=== PATIENT | female | born 1990 | race Caucasian/White ===

== ENCOUNTER → 2017-02-13 | Outpatient (CLI) | payer BC ==
[~2017-02-13] MED LIST: CLR10 PO; PRENTAB26 PO
[2017-02-13 11:10] LABS: PFT COL EPI 176 SECONDS (80-184)
== END | disposition home or self-care (01) ==
LOC: C.LAB 09:27
PROVIDERS: ATTEND Family Medicine
DX: R23.8 Other skin changes (principal)

== ENCOUNTER → 2017-07-16 | Outpatient (CLI) | payer BC ==
--- NOTE | 2017-07-16 15:20 | MAMMOGRAPHY REPORT ---
ULTRASOUND OF RIGHT BREAST: 07/16/2017 CLINICAL HISTORY: The patient reports that her doctor felt a possible lump in the right breast during a routine clinical exam. The patient could not clearly feel the lump herself. She is currently wea evelyn from breast-feeding. COMPARISON: Comparison is made to exam dated: 06/08/2015 ultrasound - [facility]. TECHNIQUE: Real-time targeted ultrasound of the right breast was performed. FINDINGS: Real-time, high-resolution targeted ultrasound was performed of the general region of the palpable lump pointed out by the patient. The patient could not clearly feel the lump herself althou gh pointed to the right upper outer quadrant near the axillary region. Targeted ultrasound demonstra geno no suspicious masses or other suspicious sonographic abnormalities in this region. Incidentally noted in the right 10:00 periareolar breast is an oval anechoic circumscribed benign simple cyst arturo uring 4 x 5 mm. IMPRESSION: ACR BI-RADS CATEGORY 2: BENIGN No suspicious sonographic abnormality in the general region of the palpable right breast lump; note t hat the patient could not feel the lump today and therefore could not pinpoint the exact location of the lump. There is no sonographic evidence of malignancy. Recommend clinical follow-up; any decisio n to biopsy should be based on clinical grounds. The patient was verbally notified of the results. Nissa Linton M.D. /:07/16/2017 10:38:39 Water Technician: Linda KIRBY)(Marcia), [facility] letter sent: Normal 1/2 BI-RADS Code: ACR BI-RADS Category 2: Benign
== END | disposition home or self-care (01) ==
LOC: C.MAMM 08:39
PROVIDERS: ATTEND Physician Assistant
DX: Z12.31 Encounter for screening mammogram for malignant neoplasm of breast (principal); N63.10 Unspecified lump in the right breast, unspecified quadrant

== ENCOUNTER → 2017-09-30 | Outpatient (CLI) | payer OTHER | END | disposition home or self-care (01) | LOC: C.LABSPEC 13:33 | PROVIDERS: ATTEND Obstetrics & Gynecology | DX: Z34.81 Encounter for supervision of other normal pregnancy, first trimester (principal); Z3A.00 Weeks of gestation of pregnancy not specified ==

== ENCOUNTER → 2017-10-03 | Outpatient (CLI) | payer OTHER ==
[2017-10-03 17:20] LABS: BASO % 0.3 %; BASO ABS # 0.02 K/uL (0-0.2); EOS % 1.7 %; EOS ABS # 0.12 K/uL (0-0.5); HEMATOCRIT 37.9 % (37-47); HEMOGLOBIN 13.2 g/dL (12.0-16.0); IG# 0.01 K/uL (0.00-0.02); LYMPH ABS # 1.72 K/uL (1.2-3.4); MEAN CELL VOLUME 86.3 fL (80-100); MEAN CORPUSCULAR HEMOGLOBIN 30.1 pg (25-34); MEAN CORPUSCULAR HGB CONC 34.8 g/dl (32-36); MEAN PLATELET VOLUME 9.3 fL (7.4-10.4); MONO % 13.5 %; MONO ABS # 0.93 K/uL (0.11-0.59); NEUT % 59.4 %; NEUT ABS # 4.07 K/uL (1.4-6.5); PLATELET COUNT 260 K/uL (130-400); RED CELL DISTRIBUTION WIDTH CV 12.6 % (11.5-14.5); RED CELL DISTRIBUTION WIDTH SD 40.2 fL (36.4-46.3); WHITE BLOOD COUNT 6.87 K/uL (4.8-10.8)
== END | disposition home or self-care (01) ==
LOC: C.LAB1850 15:22
PROVIDERS: ATTEND Obstetrics & Gynecology
DX: Z34.81 Encounter for supervision of other normal pregnancy, first trimester (principal); Z3A.00 Weeks of gestation of pregnancy not specified

== ENCOUNTER → 2017-10-03 | Outpatient (CLI) | payer OTHER | END | disposition home or self-care (01) | LOC: C.LABSPEC 17:28 | PROVIDERS: ATTEND Obstetrics & Gynecology | DX: Z34.81 Encounter for supervision of other normal pregnancy, first trimester (principal); Z3A.00 Weeks of gestation of pregnancy not specified ==

== ENCOUNTER → 2017-10-21 | Outpatient (CLI) | payer OTHER | END | disposition home or self-care (01) | LOC: C.LAB1850 16:05 | PROVIDERS: ATTEND Obstetrics & Gynecology | DX: R35.0 Frequency of micturition (principal) ==

== ENCOUNTER → 2017-12-18 | Outpatient (CLI) | payer OTHER | END | disposition home or self-care (01) | LOC: C.LAB1850 09:41 | PROVIDERS: ATTEND Obstetrics & Gynecology | DX: Z34.82 Encounter for supervision of other normal pregnancy, second trimester (principal) ==

== ENCOUNTER → 2018-04-21 | Outpatient (CLI) | payer OTHER | END | disposition home or self-care (01) | LOC: C.LABSPEC 16:07 | PROVIDERS: ATTEND Obstetrics & Gynecology | DX: Z34.83 Encounter for supervision of other normal pregnancy, third trimester (principal); Z3A.00 Weeks of gestation of pregnancy not specified ==

== ENCOUNTER → 2018-04-30 | Outpatient (CLI) | payer OTHER ==
--- NOTE | 2018-04-30 17:43 | DIAGNOSTIC IMAGING REPORT ---
R VENOUS DOPP LOWER EXT UNILAT CLINICAL HISTORY: RIGHT LEG PAIN AND SWELLING pain. Edema. TECHNIQUE: Venous Doppler COMPARISON STUDY: None FINDINGS: Normal study IMPRESSION: Normal study The above report was generated using voice recognition software. It may contain grammatical, syntax or spelling errors. Electronically signed by: Fabricio Serrato M.D. 04/30/2018 5:42 PM Dictated Date/Time: 04/30/2018 5:42 PM
== END | disposition home or self-care (01) ==
LOC: C.ULTR 16:55
PROVIDERS: ATTEND Obstetrics & Gynecology
DX: M79.661 Pain in right lower leg (principal); M79.89 Other specified soft tissue disorders

== ENCOUNTER 2021-02-02 14:10 | Inpatient (IN) ==
--- NOTE | 2021-02-02 14:39 | Emergency Department Note ---
Impression & Plan Superior vena cava occlusion, Dizzy, Facial swelling, Acute hypokalemia ED Provider Note NAME: SIVA ANNE AGE: 30 SEX: F : 1990 ARRIVES VIA: Walk-In INFORMANT: Patient ED PROVIDER(S): Ash Acevedo DO CHIEF COMPLAINT: blood clot HPI: Patient is a 30-year-old female with bilateral breast cancer diagnosed in 2019. She had a double mastectomy at that time. She had a right port placed. She underwent chemo from October 2019 till January. She underwent radiation from March for several months. Over the past month she has become a little short of breath and dizzy with exertion. She notes that her face has been swelling up with this as well. She was seen and had an ultrasound which showed limited flow in the region of the left subclavian. Following this she had a CT angio of the chest which showed clot in the SVC ROS: See above HPI for pertinent positives & negatives. A total of 10 systems reviewed and were otherwise negative. PAST MEDICAL HISTORY:See Below PAST SURGICAL HISTORY:See Below FAMILY HISTORY:See Below SOCIAL HISTORY:See Below HOME MEDICATIONS:See Below ALLERGIES:See Below VITALS:See Below PHYSICAL EXAMINATION: GENERAL: Sitting up in bed, alert, well appearing, well nourished, no distress, non-toxic EYE EXAM: normal conjunctiva. OROPHARYNX: no exudate, no erythema, lips, buccal mucosa, and tongue normal and mucous membranes are moist NECK: supple, no nuchal rigidity, no adenopathy, non-tender CHEST: Port of her right chest wall with bilateral mastectomy LUNGS: Clear to auscultation. Normal chest wall mechanics HEART: no murmurs, S1 normal and S2 normal ABDOMEN: abdomen soft, non-tender, normo-active bowel sounds, no masses, no rebound or guarding. UPPER EXTREMITIES: upper extremities are grossly normal. LOWER EXTREMITIES: No pitting edema. NEURO EXAM: Normal sensorium, cranial nerves II-XII grossly intact, normal speech, no gross weakness of arms, no gross weakness of legs. MEDICAL DECISION MAKING: Patient is a 30-year-old female that presents the ER for clot in her SVC associated with dizziness and lightheadedness. She was referred in. IV was established blood work obtained. Labs showed no significant leukocytosis or anemia. INR was unremarkable. BMP with mild hypokalemia 3.3. LFTs bilirubin troponin was negative. Lipase was unremarkable. Covid was negative. CTs were reviewed. Patient was placed on heparin drip and bolus. She had no bleeding risk factors. She was discussed with the hospitalist. They requested I speak with Dr. Ruiz. Did discuss with Dr. Ruiz and he noted no emergent intervention at this time. Updated Dr. Moncada. Patient was admitted for further work-up. Triage Nursing notes reviewed. Limited review of prior medical records performed Vital Signs: reviewed and remarkable for tachy Differential diagnosis: .Differential diagnoses includes but is not limited to acute coronary syndrome, myocardial infarction, pericarditis, pulmonary embolus, aortic dissection, pneumonia, pneumothorax, musculoskeletal, shingles, esophageal. ER treatment provided: See below Diagnostics interpreted by me: ECG: Sinus rhythm rate 87 Normal axis No PVCs QTC 442 Cardiac Monitoring: An order was placed for continuous cardiac monitoring. The monitor shows a rate of 90 with sinus rhythm. Laboratory studies: As stated above and show below. Imaging studies: IMPRESSION: 1. There is no evidence of pulmonary embolus in the main, lobar, or segmental pulmonary arteries. 2. The breasts are surgically absent. 3. There is subpleural consolidation within the anterior left upper lobe. This is nonspecific and may be related to radiation treatment. Clinical correlation will be essential. 4. No additional foci of airspace consolidation are identified and there is no pleural effusion. 5. Mild diffuse peribronchial thickening suggests bronchitis/reactive airway disease. Clinical correlation will be required. 6. 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 7. Question intraluminal thrombus within the superior vena cava above the azygos vein. IMPRESSION: 1. No significant stenosis, occlusion, or dissection identified within the carotid or vertebral arteries. 2. Heterogeneous enhancement within the bilateral internal jugular veins is likely due to mixing of blood and contrast. 3. 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 This likely accounts for multiple collaterals within the superior mediastinum with majority of the contrast reaching the heart through the azygos and hemiazygos veins. This is better appreciated on the same day chest CTA. Consultation(s): Discussed with the hospitalist and vascular surgery Procedures: none Critical Care: I have personally spent 32 minutes of critical care time in the direct manag ement of this patient. This includes bedside care, interpretation of diagnostic studies, and testing, discussion with consultants, patient, and family members, and other required patient management activities. This 32 minutes is in excess of all separately billable procedures. Past Med/Surg History Medical History Breast cyst Broken arm Chronic constipation Dysplastic nevus syndrome Mastitis Pelvic floor relaxation Port-A-Cath in place Rectocele affecting management of mother, antepartum Sciatica Surgical History History of removal of skin mole History of surgery on arm Normal colonoscopy Status post bilateral mastectomy Family History (Updated 04/04/20 @ 11:47 by Lewis Dietz) Aunt Breast cancer Premenopausal - Maternal - Alive and well now Grandfather (Maternal) , Passed age 75 of Multiple Myeloma No problems noted. Grandfather (Paternal) , Passed unknown of Throat & Lung Cancer No problems noted. Mother No problems noted. Father Depression Dyslipidemia Daughter No problems noted. Daughter No problems noted. 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 [employer] Feels Safe at Home: Yes Childhood Exposure to Second-Hand Smoke: Yes (Father ) Assistive Devices: None Allergies Allergies Allergy/AdvReac Type Severity Reaction Status Date / Time lidocaine Allergy Severe HIVES Verified 02/02/21 15:50 cat dander Allergy Mild respiratory Verified 02/02/21 15:50 mold Allergy Mild respiratory Verified 02/02/21 15:50 Sulfa (Sulfonamide Allergy Mild unknown Verified 02/02/21 15:50 Antibiotics) Home Meds Home Medications Medication Instructions Recorded Confirmed ibuprofen 200 mg capsule 200 mg PO Q6H PRN 01/23/21 02/02/21 acetaminophen [Tylenol Extra 1,000 mg PO Q6H PRN 02/02/21 02/02/21 Strength] calcium carbonate-vitamin D3 1 tab PO QAM 02/02/21 02/02/21 [Calcium 500 + D (D3)] cholecalciferol (vitamin D3) 25 mcg PO QAM 02/02/21 02/02/21 [Vitamin D3] fexofenadine-pseudoephedrine 1 tab PO QAM PRN 02/02/21 02/02/21 [Nga-D 24 Hour] fluticasone propionate 2 spray INTRANASAL BID 02/02/21 02/02/21 melatonin 5 mg PO HS PRN 02/02/21 02/02/21 Results & Data (ED) Vital Signs Vital Signs - 24 hr 02/02/21 14:16 02/02/21 14:39 02/02/21 14:44 Temperature 36.8 C Temperature Source Temporal Artery Scan Pulse Rate 108 H 96 H 93 H Pulse Rate from SpO2 Sensor 96 H 97 H Pulse Rhythm Respiratory Rate 20 20 20 Respiratory Effort / Characteristics Non-Labored Respiratory Depth Normal Respiratory Pattern Blood Pressure 99/61 L 116/58 L Blood Pressure Mean 73 77 Blood Pressure Position Sitting Pulse Oximetry 97 97 96 Oxygen Delivery Method Room Air Sepsis Recent Fever Within 48 Hours No Sepsis New/Unexplained Change in Mental Status N/A Sepsis Action Taken by Nursing No Action Required 02/02/21 15:00 02/02/21 15:01 02/02/21 15:03 Temperature Temperature Source Pulse Rate 85 91 H 91 H Pulse Rate from SpO2 Sensor 87 94 H Pulse Rhythm Regular Respiratory Rate 16 14 18 Respiratory Effort / Characteristics Non-Labored Spontaneous SOB on Exertion Respiratory Depth Normal Respiratory Pattern Regular Blood Pressure 105/63 Blood Pressure Mean 77 Blood Pressure Position Pulse Oximetry 99 99 99 Oxygen Delivery Method Room Air Room Air Sepsis Recent Fever Within 48 Hours Sepsis New/Unexplained Change in Mental Status Sepsis Action Taken by Nursing 02/02/21 15:30 Temperature Temperature Source Pulse Rate 91 H Pulse Rate from SpO2 Sensor 93 H Pulse Rhythm Respiratory Rate 18 Respiratory Effort / Characteristics Respiratory Depth Respiratory Pattern Blood Pressure 118/65 Blood Pressure Mean 82 Blood Pressure Position Pulse Oximetry 100 Oxygen Delivery Method Room Air Sepsis Recent Fever Within 48 Hours Sepsis New/Unexplained Change in Mental Status Sepsis Action Taken by Nursing Laboratory Data Result diagrams: 02/02/21 14:43 02/02/21 15:39 Lab Results 02/02/21 02/02/21 02/02/21 Range/Units 14:43 14:43 14:43 WBC 6.70 (4.8-10.8) K/uL RBC 4.46 (4.2-5.4) M/uL Hgb 13.5 (12.0-16.0) g/dL Hct 39.5 (37-47) % MCV 88.6 (80-100) fL MCH 30.3 (25-34) pg MCHC 34.2 (32-36) g/dL RDW Std Deviation 40.9 (36.4-46.3) fL RDW Coeff of Emerita 12.7 (11.5-14.5) % Plt Count 277 (130-400) K/uL MPV 8.7 (7.4-10.4) fL Immature Gran % (Auto) 0.1 % Neut % (Auto) 74.7 % Lymph % (Auto) 14.9 % [place] % (Auto) 8.7 % Eos % (Auto) 1.3 % Baso % (Auto) 0.3 % Neut # (Auto) 5.00 (1.4-6.5) K/uL Lymph # (Auto) 1.00 L (1.2-3.4) K/uL [place] # (Auto) 0.58 (0.11-0.59) K/uL Eos # (Auto) 0.09 (0-0.5) K/uL Baso # (Auto) 0.02 (0-0.2) K/uL Immature Gran # (Auto) 0.01 (0.00-0.02) K/uL APTT 25.7 (21.0-31.0) Seconds PTT Ratio 1.0 Sodium 137 (136-145) mmol/L Potassium (3.5-5.1) mmol/L Chloride 106 (98-107) mmol/L Carbon Dioxide 24 (21-32) mmol/L Anion Gap 7.0 (3-11) BUN 16 (7-18) mg/dl Creatinine 0.77 (0.6-1.2) mg/dl Est Cr Clr Drug Dosing 83.7 ml/min Est GFR ( Amer) 119.2 ml/min Est GFR (Non-Af Amer) 102.9 ml/min BUN/Creatinine Ratio 21.1 H (10-20) Glucose 136 H (70-99) mg/dl Calcium 9.3 (8.5-10.1) mg/dl Total Bilirubin 0.5 (0.2-1) mg/dl AST (15-37) U/L ALT 41 (12-78) U/L Alkaline Phosphatase 45 (45-117) U/L Troponin I < 0.015 (0-0.045) ng/ml Total Protein 7.7 (6.4-8.2) gm/dl Albumin 3.9 (3.4-5.0) gm/dl Globulin 3.8 (2.5-4.0) gm/dl Albumin/Globulin Ratio 1.0 (0.9-2) Lipase 127 (73-393) U/L COVID-19 Eval Order SARS-CoV-2 (PCR) (Negative) 02/02/21 02/02/21 02/02/21 Range/Units 15:30 15:30 15:39 WBC (4.8-10.8) K/uL RBC (4.2-5.4) M/uL Hgb (12.0-16.0) g/dL Hct (37-47) % MCV (80-100) fL MCH (25-34) pg MCHC (32-36) g/dL RDW Std Deviation (36.4-46.3) fL RDW Coeff of Emerita (11.5-14.5) % Plt Count (130-400) K/uL MPV (7.4-10.4) fL Immature Gran % (Auto) % Neut % (Auto) % Lymph % (Auto) % [place] % (Auto) % Eos % (Auto) % Baso % (Auto) % Neut # (Auto) (1.4-6.5) K/uL Lymph # (Auto) (1.2-3.4) K/uL [place] # (Auto) (0.11-0.59) K/uL Eos # (Auto) (0-0.5) K/uL Baso # (Auto) (0-0.2) K/uL Immature Gran # (Auto) (0.00-0.02) K/uL APTT (21.0-31.0) Seconds PTT Ratio Sodium (136-145) mmol/L Potassium 3.3 L (3.5-5.1) mmol/L Chloride (98-107) mmol/L Carbon Dioxide (21-32) mmol/L Anion Gap (3-11) BUN (7-18) mg/dl Creatinine (0.6-1.2) mg/dl Est Cr Clr Drug Dosing ml/min Est GFR ( Amer) ml/min Est GFR (Non-Af Amer) ml/min BUN/Creatinine Ratio (10-20) Glucose (70-99) mg/dl Calcium (8.5-10.1) mg/dl Total Bilirubin (0.2-1) mg/dl AST 18 (15-37) U/L ALT (12-78) U/L Alkaline Phosphatase (45-117) U/L Troponin I (0-0.045) ng/ml Total Protein (6.4-8.2) gm/dl Albumin (3.4-5.0) gm/dl Globulin (2.5-4.0) gm/dl Albumin/Globulin Ratio (0.9-2) Lipase (73-393) U/L COVID-19 Eval Order Covid19 at [facility] SARS-CoV-2 (PCR) NEGATIVE (Negative) Administered Medications Heparin Sodium/Dextrose (Heparin Sodium/Dextrose) 25,000 units in 500 mls @ 18 mls/hr IV .Q24H [id number]; Protocol Stop: 03/04/21 14:57 Last Admin: 02/02/21 15:20 Dose: 900 units/hr, 18 mls/hr Documented by: [id number] Cosigned by: [id number] Discontinued Medications Heparin Sodium (Porcine) (Heparin Sod (Porcine) 1000 Unit/Ml) 1 units IV NOW ONE Stop: 02/02/21 14:59 Last Admin: 02/02/21 15:15 Dose: 4,000 units Documented by: [id number] Cosigned by: [id number] Heparin Sodium/Dextrose (Heparin Iv Adult Wt-Based Standard With Bolus Protocol) 1 ea IV NOW STA; Protocol Stop: 02/02/21 14:43 Last Admin: 02/02/21 15:20 Dose: Not Given Documented by: [id number] Sodium Chloride (Nss 1000ml) 1,000 mls @ 999 mls/hr IV .Q1H1M ONE Stop: 02/02/21 15:42 Last Admin: 02/02/21 14:53 Dose: 999 mls/hr Documented by: [id number] Discharge Plan Visit Data Chief Complaint: Shortness of Breath/Dyspnea Stated Complaint: TWO CHEST BLOOD CLOTS,DIZZY,PORT FOR CHEMO ED Provider: Ash Acevedo Discharge Problem: Superior vena cava occlusion, Dizzy, Facial swelling, Acute hypokalemia Forms Stand Alone Forms: [facility] Prescriptions Prescriptions: No Action ibuprofen [Advil Liqui-Gel] 200 mg capsule 200 mg PO Q6H PRN (Reason: Fever Or Pain) RF: 0 acetaminophen [Tylenol Extra Strength] 500 mg Tablet 1,000 mg PO Q6H PRN (Reason: Fever Or Pain) RF: 0 fluticasone propionate 50 mcg/actuation spray,suspension 2 spray INTRANASAL BID RF: 0 Nga-D 24 Hour 180-240 mg Tablet Extended Release 24 Hr 1 tab PO QAM PRN (Reason: Allergy Symptoms) RF: 0 cholecalciferol (vitamin D3) [Vitamin D3] 25 mcg (1,000 unit) Tablet 25 mcg PO QAM RF: 0 calcium carbonate-vitamin D3 [Calcium 500 + D (D3)] 500 mg(1,250mg) -125 unit Tablet 1 tab PO QAM RF: 0 melatonin 5 mg Tablet 5 mg PO HS PRN (Reason: Sleep) RF: 0
[2021-02-02] MEDS ORDERED: SODIUM CHLORIDE 0.9% 1000ML 1,000 ML IV ONE (14:42)
[2021-02-02] MEDS ORDERED: Heparin IV Adult Wt-Based Standard WITH Bolus Protocol IV STA (14:42)
[2021-02-02] MEDS ORDERED: HEPARIN SOD (PORCINE) 1000 UNIT/ML IV ONE (14:58)
[2021-02-02 15:07] LABS: Basophils # (auto) 0.02 K/uL (0-0.2); Basophils % (auto) 0.3 %; Eosinophils # (auto) 0.09 K/uL (0-0.5); Eosinophils % (auto) 1.3 %; Hematocrit (blood only) 39.5 % (37-47); Hemoglobin 13.5 g/dL (12.0-16.0); Immature Granulocytes # (auto) 0.01 K/uL (0.00-0.02); Immature Granulocytes % (auto) 0.1 %; Lymphocytes % (auto) 14.9 %; Mean Corpuscular Hemoglobin 30.3 pg (25-34); Mean Corpuscular Hgb Conc 34.2 g/dL (32-36); Mean Corpuscular Volume 88.6 fL (80-100); Mean Platelet Volume 8.7 fL (7.4-10.4); Monocytes # (auto) 0.58 K/uL (0.11-0.59); Monocytes % (auto) 8.7 %; Neutrophils % (auto) 74.7 %; Platelet Count 277 K/uL (130-400); RDW Coefficient of Variation 12.7 % (11.5-14.5); RDW Standard Deviation 40.9 fL (36.4-46.3); Red Blood Count 4.46 M/uL (4.2-5.4)
[2021-02-02] MEDS: HEPARIN SODIUM/DEXTROSE 25,000 UNITS/500 ML BAG IV SCH (15:20)
[2021-02-02 15:27] LABS: Partial Thromboplastin Time 25.7 Seconds (21.0-31.0)
[2021-02-02 15:29] LABS: Alanine Aminotransferase 41 U/L (12-78); Albumin Level 3.9 gm/dl (3.4-5.0); BUN Creatinine Ratio 21.1 (10-20); Blood Urea Nitrogen 16 mg/dl (7-18); Calcium 9.3 mg/dl (8.5-10.1); Carbon Dioxide 24 mmol/L (21-32); Chloride 106 mmol/L (98-107); Creatinine Clr Calc Pharmacy 83.7 ml/min; Est GFR (African American) 119.2 ml/min; Est GFR (Non-African American) 102.9 ml/min; Glucose 136 mg/dl (70-99); Lipase 127 U/L (73-393); Sodium 137 mmol/L (136-145)
[2021-02-02 15:42] LABS: Alkaline Phosphatase 45 U/L (45-117); Bilirubin,Total 0.5 mg/dl (0.2-1); Globulin 3.8 gm/dl (2.5-4.0); Total Protein 7.7 gm/dl (6.4-8.2); Troponin I < 0.015 ng/ml (0-0.045)
--- NOTE | 2021-02-02 16:02 | Electrocardiogram Report ---
Test Reason : Blood Pressure : / mmHG Vent. Rate : 087 BPM Atrial Rate : 087 BPM P-R Int : 150 ms QRS Dur : 096 ms QT Int : 368 ms P-R-T Axes : 052 058 024 degrees QTc Int : 442 ms Normal sinus rhythm Normal ECG No previous ECGs available Confirmed by Macario Aden ([id number]) on 02/02/2021 4:02:27 PM Referred By: Harpreet Scherer Confirmed By:Macario Aden
[2021-02-02 16:09] LABS: Potassium 3.3 mmol/L (3.5-5.1)
--- NOTE | 2021-02-02 16:55 | History & Physical Report ---
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 Ruiz by the ER physician and advised for not having any acute intervention now Case discussed with Dr. Scherer by me, doubt any acute embolism effect from the thrombosis was sent to chronic Chronic clot formation could be secondary to a port and may be complicated by possible hypercoagulable state due to history of breast cancer Echo of the heart on 01/30/2021 LV EF 59% Doppler interrogation of the aortic arch reveals an area of laminar flow in the region of the left subclavian origin. No evidence of dissection or aneurysm Hypercoagulable work-up have been sent She has been started with intravenous heparin and is admitted to telemetry unit Right-sided A-port in situ Not sure if the clot is related to the a-port We will consult vascular surgery for further evaluation and management Skin discoloration left upper chest wall Could be secondary to radiation injury and/or venous engorgement secondary to superior vena caval obstruction (2) Facial swelling: Has been feeling puffiness of the face and thought due to sinus infection Puffiness gets worse with redness of the face and upper chest with exertion and also with bending Denies any chest pain and/or palpitation Secondary to impaired venous drainage due to chronic superior vena caval occl usion (3) Personal history of breast cancer: 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 ER and [place] receptor negative, H ER 2NEU positive. Status post bilateral mastectomies and left sentinel lymph node biopsy done on 07/20/2019 2 out of 2 sentinel lymph nodes positive for isolated tumor cells. She completed 12 cycles of weekly paclitaxel along with Herceptin and then Herceptin maintenance for 1 year finished on 11/10/2020 Earlier she completed adjuvant radiation treatment at [facility] in May 2020 PETCT scan done on 11/05/2019 at [facility] did not show any significant recurrence of the disease (4) Dizzy: She has been also complaining of occasional dizzy spells with exertion and on bending forward With each of the episode her face becomes puffy and red with shortness of breath She also complains to have hoarseness of voice recently History of Present Illness Chief Complaint: Shortness of breath with the puffiness and discoloration of the face and upper chest for more than 1 month Primary Care Provider: Sarwat Ruiz MD She is a 30-year-old female with significant past medical history of left breast high-grade DCIS measuring around 7 mm centimeter with a small focus of invasive carcinoma measuring 0.2 mm, ER and NE receptor negative, H ER 2/MINERVA positive. She is status post bilateral mastectomies and left sentinel lymph node biopsy done on 07/20/2019 2 out of 2 sentinel lymph nodes positive for isolated tumor cells. She completed 12 cycles of weekly paclitaxel along with Herceptin and then Herceptin maintenance for 1 year on 11/10/2020. She also completed adjuvant radiation treatment at [facility] in May 2020. She has been complaining of puffiness, redness of the face with some dizziness while bending forward and associated with shortness of breath which has been going on for more than a month. Her D-dimer was elevated at more than 600 and she was hemodynamically stable without any desaturation. 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 She denies any chest pain and or palpitation, any fever and/or chills, any nausea no vomiting or any swelling of the legs She was started with intravenous fluid, the ER physician did discuss with the vascular surgery and was advised that she does not need any acute intervention, I discussed with Dr. Scherer and after detailed discussion with the patient herself she will will be admitted to telemetry unit for continuation of care Allergies Allergy/AdvReac Type Severity Reaction Status Date / Time lidocaine Allergy Severe HIVES Verified 02/02/21 15:50 cat dander Allergy Mild respiratory Verified 02/02/21 15:50 mold Allergy Mild respiratory Verified 02/02/21 15:50 Sulfa (Sulfonamide Allergy Mild unknown Verified 02/02/21 15:50 Antibiotics) Home Medications Medication Instructions Recorded Confirmed Type ibuprofen 200 mg capsule 200 mg PO Q6H PRN 01/23/21 02/02/21 History acetaminophen [Tylenol Extra 1,000 mg PO Q6H PRN 02/02/21 02/02/21 History Strength] calcium carbonate-vitamin D3 1 tab PO QAM 02/02/21 02/02/21 History [Calcium 500 + D (D3)] cholecalciferol (vitamin D3) 25 mcg PO QAM 02/02/21 02/02/21 History [Vitamin D3] fexofenadine-pseudoephedrine 1 tab PO QAM PRN 02/02/21 02/02/21 History [Nga-D 24 Hour] fluticasone propionate 2 spray INTRANASAL BID 02/02/21 02/02/21 History melatonin 5 mg PO HS PRN 02/02/21 02/02/21 History Past Med/Surg History Medical History Breast cyst Broken arm Chronic constipation Dysplastic nevus syndrome Mastitis Pelvic floor relaxation Port-A-Cath in place Rectocele affecting management of mother, antepartum Sciatica Surgical History History of removal of skin mole History of surgery on arm Normal colonoscopy Status post bilateral mastectomy Family History (Updated 04/04/20 @ 11:47 by Lewis Dietz) Aunt Breast cancer Premenopausal - Maternal - Alive and well now Grandfather (Maternal) , Passed age 75 of Multiple Myeloma No problems noted. Grandfather (Paternal) , Passed unknown of Throat & Lung Cancer No problems noted. Mother No problems noted. Father Depression Dyslipidemia Daughter No problems noted. Daughter No problems noted. Other Alcohol abuse Drinking problem Osteoporosis Denies family history of Ovarian cancer Colorectal cancer Social History (Updated 09/05/20 @ 15:03 by Dulce Fernando) Smoking Status: Never smoker Second Hand Exposure: No; Hx Alcohol Use: No Hx Substance Use: No Preferred Language: Bengali Communication Ability: Effective Visual Impairment: No Limitations Hearing Ability: Normal Track Inspector Required: No Beliefs That Will Affect Care: None marital status: Current Living Situation: Spouse current occupation: [employer] at [employer] Other Information That Helps Us Care for You: No Feels Safe at Home: Yes Safety Concerns: Feels Safe At This Time Childhood Exposure to Second-Hand Smoke: Yes (Father ) Assistive Devices: None Review of Systems Review of Systems: All systems reviewed & are unremarkable except as noted in HPI & below Physical Exam Physical Exam: Lying in bed comfortably but anxious Constitutional: well developed, well nourished, + ill appearing and average body habitus Eyes: PERRL, conjunctivae normal, anicteric sclerae ENMT: external ear and nose normal, oropharynx normal Neck: trachea midline, no thyromegaly Respiratory: no respiratory distress Auscultation: lungs clear to auscultation bilaterally Cardiovascular: Rate/Rhythm: regular rate and regular rhythm Heart Sounds: no murmur Extremities: no edema Chest (Breasts): Additional Comments: Bilateral mastectomies. Thickening of skin fold about the mastectomy site. Right a port in situ. Left upper chest skin discoloration. Gastrointestinal (Abdomen): Inspection/Auscultation: abdomen not distended Percussion/Palpation: abdomen soft; abdomen nontender Musculoskeletal: No acute arthritis in any joint Neurologic: Alert, awake and oriented x3. Psychiatric: A+Ox3, euthymic affect Lymphatic: no cervical or axillary lymphadenopathy Results & Data Results & Data ([facility]) Vital Signs (Past 12 Hours) Vital Signs Temp Pulse Resp BP Pulse Ox 02/02/21 15:30 91 H 18 118/65 100 02/02/21 15:03 91 H 18 99 02/02/21 15:01 91 H 14 99 02/02/21 15:00 85 16 105/63 99 02/02/21 14:44 93 H 20 96 02/02/21 14:39 96 H 20 116/58 L 97 02/02/21 14:16 36.8 C 108 H 20 99/61 L 97 Laboratory Results Short CBC 02/02/21 Range/Units 14:43 WBC 6.70 (4.8-10.8) K/uL Hgb 13.5 (12.0-16.0) g/dL Hct 39.5 (37-47) % Plt Count 277 (130-400) K/uL BMP 02/02/21 02/02/21 14:43 15:39 Sodium 137 Potassium 3.3 L Chloride 106 Carbon Dioxide 24 BUN 16 Creatinine 0.77 Glucose 136 H Calcium 9.3 Cardiac Enzymes 02/02/21 Range/Units 14:43 Troponin I < 0.015 (0-0.045) ng/ml Liver Function 02/02/21 02/02/21 Range/Units 14:43 15:39 Total Bilirubin 0.5 (0.2-1) mg/dl AST 18 (15-37) U/L ALT 41 (12-78) U/L Alkaline Phosphatase 45 (45-117) U/L Albumin 3.9 (3.4-5.0) gm/dl Diagnostic Findings CTA Chest: IMPRESSION: 1. There is no evidence of pulmonary embolus in the main, lobar, or segmental pulmonary arteries. 2. The breasts are surgically absent. 3. There is subpleural consolidation within the anterior left upper lobe. This is nonspecific and may be related to radiation treatment. Clinical correlation will be essential. 4. No additional foci of airspace consolidation are identified and there is no pleural effusion. 5. Mild diffuse peribronchial thickening suggests bronchitis/reactive airway disease. Clinical correlation will be required. 6. 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 7. Question intraluminal thrombus within the superior vena cava above the azygos vein. CTA-Neck IMPRESSION: 1. No significant stenosis, occlusion, or dissection identified within the carotid or vertebral arteries. 2. Heterogeneous enhancement within the bilateral internal jugular veins is likely due to mixing of blood and contrast. 3. 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 This likely accounts for multiple collaterals within the superior mediastinum with majority of the contrast reaching the heart through the azygos and hemiazygos veins. This is better appreciated on the same day chest CTA. Echo of the heart on 01/30/2021 LV EF 59% Doppler interrogation of the aortic arch reveals an area of laminar flow in the region of the left subclavian origin. No evidence of dissection or aneurysm Medications Administered Current Inpatient Medications Heparin Sodium/Dextrose (Heparin Sodium/Dextrose) 25,000 units in 500 mls @ 18 mls/hr IV .Q24H [facility]; Protocol Stop: 03/04/21 14:57 Last Admin: 02/02/21 15:20 Dose: 900 units/hr, 18 mls/hr Documented by: Code Status & VTE Plan VTE Prophylaxis Plan VTE Prophylaxis will be ordered: Yes
[2021-02-02] MEDS ORDERED: POTASSIUM CHLORIDE CRTAB 20 MEQ TABCR PO STA (17:37)
[2021-02-02] MEDS ORDERED: ACETAMINOPHEN 500 MG TAB PO PRN (19:55)
[2021-02-02] MEDS ORDERED: MELATONIN 3 MG TAB PO PRN (19:56)
[2021-02-02] MEDS ORDERED: FEXOFENADINE HCL 180 MG TAB PO PRN (19:56)
[2021-02-02] MEDS: FLUTICASONE PROPIONATE NA SPR 16 GM BTL SCH (20:47)
[2021-02-02 22:15] LABS: Partial Thromboplastin Time 80.1 Seconds (21.0-31.0)
[2021-02-03 05:01] LABS: Basophils # (auto) 0.03 K/uL (0-0.2); Basophils % (auto) 0.5 %; Eosinophils # (auto) 0.24 K/uL (0-0.5); Eosinophils % (auto) 4.1 %; Hematocrit (blood only) 36.8 % (37-47); Hemoglobin 12.6 g/dL (12.0-16.0); Immature Granulocytes # (auto) 0.01 K/uL (0.00-0.02); Immature Granulocytes % (auto) 0.2 %; Lymphocytes # (auto) 1.39 K/uL (1.2-3.4); Mean Corpuscular Hemoglobin 30.7 pg (25-34); Mean Corpuscular Hgb Conc 34.2 g/dL (32-36); Mean Corpuscular Volume 89.5 fL (80-100); Mean Platelet Volume 8.6 fL (7.4-10.4); Monocytes # (auto) 0.58 K/uL (0.11-0.59); Neutrophils # (auto) 3.54 K/uL (1.4-6.5); Neutrophils % (auto) 61.2 %; Platelet Count 237 K/uL (130-400); RDW Coefficient of Variation 12.8 % (11.5-14.5); RDW Standard Deviation 41.7 fL (36.4-46.3); Red Blood Count 4.11 M/uL (4.2-5.4); White Blood Count 5.79 K/uL (4.8-10.8)
[2021-02-03 05:23] LABS: Partial Thromboplastin Ratio 2.8
[2021-02-03 05:28] LABS: Partial Thromboplastin Time 72.4 Seconds (21.0-31.0)
[2021-02-03 05:33] LABS: Albumin Level 3.3 gm/dl (3.4-5.0); BUN Creatinine Ratio 24.4 (10-20); Bilirubin,Total 0.4 mg/dl (0.2-1); Calcium 8.6 mg/dl (8.5-10.1); Est GFR (African American) 139.3 ml/min; Est GFR (Non-African American) 120.2 ml/min; Globulin 3.2 gm/dl (2.5-4.0); Potassium 4.2 mmol/L (3.5-5.1); Total Protein 6.5 gm/dl (6.4-8.2)
[2021-02-03] MEDS: CHOLECALCIFEROL 1,000 UNITS 25 MCG TAB PO SCH (08:20)
[2021-02-03] MEDS: CALCIUM 600MG + VIT D 400 IU TAB PO SCH (08:20)
[2021-02-03] MEDS: FLUTICASONE PROPIONATE NA SPR 16 GM BTL SCH ×2 (08:21→20:58)
[2021-02-03 10:47] LABS: Pregnancy Test, Urine Negative (Negative)
[2021-02-03 11:55] LABS: Partial Thromboplastin Ratio 2.8
[2021-02-03 11:59] LABS: Partial Thromboplastin Time 73.5 Seconds (21.0-31.0)
[2021-02-03 13:33] LABS: Appearance Urine Clear (Clear); Bilirubin Urine Negative (Negative); Blood Urine Negative (Negative); Color Urine Yellow; Glucose Urine UA Negative (Negative); Ketones Urine Negative (Negative); Leukocyte Esterase Urine Negative (Negative); Nitrite Urine Negative (Negative); Protein Urine Negative (Negative); Specific Gravity Urine 1.006 (1.000-1.030); Urobilinogen Urine Negative (Negative); pH Urine 7.5 (4.5-7.5)
--- NOTE | 2021-02-03 15:25 | Hospitalist Progress Note ---
Date of Service February 03, 2021 Assessment & Plan (1) Superior vena cava occlusion: Superior vena cava occlusion H/O Breast Cancer -Chest CTA:There is no evidence of pulmonary embolus in the main, lobar, or segmental pulmonary arteries. The breasts are surgically absent. There is subpleural consolidation within the anterior left upper lobe. This is nonspecific and may be related to radiation treatment. Clinical correlation will be essential. No additional foci of airspace consolidation are identified and there is no pleural effusion. Mild diffuse peribronchial thickening suggests bronchitis/reactive airway disease. Clinical correlation will be required. 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 Question intraluminal thrombus within the superior vena cava above the azygos vein. -Neck CTA:No significant stenosis, occlusion, or dissection identified within the carotid or vertebral arteries. Heterogeneous enhancement within the bilateral internal jugular veins is likely due to mixing of blood and contrast. 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 This likely accounts for multiple collaterals within the superior mediastinum with majority of the contrast reaching the heart through the azygos and hemiazygos veins. This is better appreciated on the same day chest CTA. -Hypercoagulable work-up pending -Continue IV heparin -Discussed with vascular surgery, Dr. Ruiz: Recommends no acute intervention; no plan to remove a port if working -Discussed with oncology: Plan to transition to Eliquis as able Possible Bronchitis/Sinusitis/Nasal Congestion CT head: No acute intracranial abnormality. Recently finished a course of Augmentin CTA as above Started on Doxycycline Continue Nga, Flonase (2) Facial swelling: Secondary to above (3) Personal history of breast cancer: H/O Left breast high-grade DCIS with small focus of invasive carcinoma gabrielle suring 2.2 mm ER and [place] receptor negative, H ER 2NEU positive S/P bilateral mastectomies and left sentinel lymph node biopsy done on 07/20/2019 [place] lymph nodes positive for isolated tumor cells. Completed 12 cycles of paclitaxel, Herceptin and then Herceptin maintenance for 1 year completed on 11/10/2020 Completed radiation treatment May 2020 PETCT scan done on 11/05/2019 at [facility] did not show any significant recurrence of the disease Follows with [facility] as outpatient (4) Dizzy: As Above DVT Px: IV Heparin Code Status Full Code Disposition Expect to discharge him when stable Admission and Anticipated Discharge Date Admission Date: February 02, 2021 Subjective Patient is seen and examined at bedside Facial puffiness better States having intermittent dyspnea on exertion, dizziness, fall twice States having ear congestion Discussed with vascular surgery, oncology today Denies chest pain, nausea, abdominal pain Offers no other complaints Review of Systems Review of Systems: All systems reviewed & are unremarkable except as noted in HPI & below Physical Exam Physical Exam: Physical Exam: Vitals signs as noted above General Appearance:Moderately built and nourished, no apparent distress Head: normocephalic, Atraumatic Eyes: normal inspection, EOMI Neck: supple, Trachea midline Respiratory/Chest: Normal breath sounds, CTA, +S/P Bilateral mastectomy Cardiovascular: S1, S2, No murmur Abdomen/GI:Soft, Non tender, Bowel sounds present Extremities/Musculoskeletal:normal inspection, no edema Neurologic/Psych:AAOX3, grossly no focal neurological deficits Skin: normal color, warm Results & Data Results & Data ([facility]) Vital Signs (Past 12 Hours) Vital Signs Temp Pulse Pulse Resp BP Pulse Ox 02/03/21 15:15 36.7 C 72 18 96/60 L 98 02/03/21 15:07 83 02/03/21 11:50 37.7 C H 79 18 107/71 96 02/03/21 08:00 77 02/03/21 07:19 37.0 C 78 17 100/64 97 02/03/21 03:31 36.9 C 65 18 93/57 L 98 Laboratory Results Short CBC 02/03/21 Range/Units 04:34 WBC 5.79 (4.8-10.8) K/uL Hgb 12.6 (12.0-16.0) g/dL Hct 36.8 L (37-47) % Plt Count 237 (130-400) K/uL BMP 02/02/21 02/02/21 02/03/21 14:43 15:39 04:34 Sodium 137 139 Potassium 3.3 L 4.2 D Chloride 106 110 H Carbon Dioxide 24 23 BUN 16 15 Creatinine 0.77 0.62 Glucose 136 H 89 Calcium 9.3 8.6 Cardiac Enzymes 02/02/21 Range/Units 14:43 Troponin I < 0.015 (0-0.045) ng/ml Liver Function 06/12/2002/02/21 02/03/21 Range/Units 14:43 15:39 04:34 Total Bilirubin 0.5 0.4 (0.2-1) mg/dl AST 18 34 (15-37) U/L ALT 41 49 (12-78) U/L Alkaline Phosphatase 45 40 L (45-117) U/L Albumin 3.9 3.3 L (3.4-5.0) gm/dl Urine 02/03/21 Range/Units 10:23 Urine Color Yellow Urine Appearance Clear (Clear) Urine pH 7.5 (4.5-7.5) Ur Specific [place] 1.006 (1.000-1.030) Urine Protein Negative (Negative) Urine Glucose (UA) Negative (Negative)
--- NOTE | 2021-02-03 15:32 | CT Scan Report ---
HEAD CT NONCONTRAST CT DOSE: 729.78 mGycm HISTORY: headache TECHNIQUE: Multiaxial CT images of the head were performed without the use of intravenous contrast. A utomated exposure control was utilized for this study. A dose lowering technique was utilized adheri ng to the principles of ALARA. Comparison: None. Findings: The paranasal sinuses and mastoid air cells are clear. The calvarium and skull base are int act. The ventricles and sulci are within normal limits. There is no mass, hematoma, midline shift, or acute infarct. Impression: No acute intracranial abnormality. ACT 112: Negative or not required by law. Electronically signed by: Jai Mario M.D. 02/03/2021 3:31 PM
[2021-02-03] MEDS: HEPARIN SODIUM/DEXTROSE 25,000 UNITS/500 ML BAG IV SCH (15:38)
[2021-02-03] MEDS: DOXYCYCLINE HYCLATE 100 MG CAP PO SCH ×2 (17:08→17:28)
[2021-02-03 18:53] LABS: Partial Thromboplastin Ratio 1.8
--- NOTE | 2021-02-03 18:58 | Discharge Summary ---
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 She is status post bilateral mastectomies and left sentinel lymph node biopsy done on 07/20/2019 2 out of 2 sentinel lymph nodes positive for isolated tumor cells. She completed 12 cycles of weekly paclitaxel along with Herceptin and then Herceptin maintenance for 1 year on 11/10/2020. She also completed adjuvant radiation treatment at [facility] in May 2020. She has been complaining of puffiness, redness of the face with some dizziness while bending forward and associated with shortness of breath which has been going on for more than a month. Her D-dimer was elevated at more than 600 and she was hemodynamically stable without any desaturation. 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 She denies any chest pain and or palpitation, any fever and/or chills, any nausea no vomiting or any swelling of the legs She was started with intravenous fluid, the ER physician did discuss with the vascular surgery and was advised that she does not need any acute intervention, I discussed with Dr. Scherer and after detailed discussion with the patient herself she will will be admitted to telemetry unit for continuation of care Admission Exam Per Admitting Provider Physical Exam Physical Exam: Lying in bed comfortably but anxious Constitutional: well developed, well nourished, + ill appearing and average body habitus Eyes: PERRL, conjunctivae normal, anicteric sclerae ENMT: external ear and nose normal, oropharynx normal Neck: trachea midline, no thyromegaly Respiratory: no respiratory distress Auscultation: lungs clear to a uscultation bilaterally Cardiovascular: Rate/Rhythm: regular rate and regular rhythm Heart Sounds: no murmur Extremities: no edema Chest (Breasts): Additional Comments: Bilateral mastectomies. Thickening of skin fold about the mastectomy site. Right a port in situ. Left upper chest skin discoloration. Gastrointestinal (Abdomen): Inspection/Auscultation: abdomen not distended Percussion/Palpation: abdomen soft; abdomen nontender Musculoskeletal: No acute arthritis in any joint Neurologic: Alert, awake and oriented x3. Psychiatric: A+Ox3, euthymic affect Lymphatic: no cervical or axillary lymphadenopathy Principal Diagnosis Superior vena cava occlusion H/O Breast Cancer Possible Bronchitis/Sinusitis Discharge Data Allergies Allergy/AdvReac Type Severity Reaction Status Date / Time lidocaine Allergy Severe HIVES Verified 02/02/21 15:50 cat dander Allergy Mild respiratory Verified 02/02/21 15:50 mold Allergy Mild respiratory Verified 02/02/21 15:50 Sulfa (Sulfonamide Allergy Mild unknown Verified 02/02/21 15:50 Antibiotics) Consultations 02/02/21 15:26 ED Decision to Admit Stat 02/02/21 17:37 Consult Vascular Surgery Routine 02/03/21 18:32 Burn CD for patient Routine Procedures Performed -Chest CTA:There is no evidence of pulmonary embolus in the main, lobar, or segmental pulmonary arteries. The breasts are surgically absent. There is subpleural consolidation within the anterior left upper lobe. This is nonspecific and may be related to radiation treatment. Clinical correlation will be essential. No additional foci of airspace consolidation are identified and there is no pleural effusion. Mild diffuse peribronchial thickening suggests bronchitis/reactive airway disease. Clinical correlation will be required. 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 Question intraluminal thrombus within the superior vena cava above the azygos vein. -Neck CTA:No significant stenosis, occlusion, or dissection identified within the carotid or vertebral arteries. Heterogeneous enhancement within the bilateral internal jugular veins is likely due to mixing of blood and contrast. 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 This likely accounts for multiple collaterals within the superior mediastinum with majority of the contrast reaching the heart through the azygos and hemiazygos veins. This is better appreciated on the same day chest CTA. Ordered Studies 02/03/21 13:52 CT head/brain wo con Urgent Hospital Course (1) Superior vena cava occlusion: Superior vena cava occlusion H/O Breast Cancer -Chest CTA:There is no evidence of pulmonary embolus in the main, lobar, or segmental pulmonary arteries. The breasts are surgically absent. There is subpleural consolidation within the anterior left upper lobe. This is nonspecific and may be related to radiation treatment. Clinical correlation will be essential. No additional foci of airspace consolidation are identified and there is no pleural effusion. Mild diffuse peribronchial thickening suggests bronchitis/reactive airway disease. Clinical correlation will be required. 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 Question intraluminal thrombus within the superior vena cava above the azygos vein. -Neck CTA:No significant stenosis, occlusion, or dissection identified within the carotid or vertebral arteries. Heterogeneous enhancement within the bilateral internal jugular veins is likely due to mixing of blood and contrast. 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 This likely accounts for multiple collaterals within the superior mediastinum with majority of the contrast reaching the heart through the azygos and hemiazygos veins. This is better appreciated on the same day chest CTA. -Hypercoagulable work-up pending -Continue IV heparin -Discussed with vascular surgery, Dr. Ruiz: Recommends no acute intervention; no plan to remove a port if working -Discussed with oncology: Plan to transition to [facility] as able -Patient is concerned that Vascular surgery was unable to evaluate her over weekend and preferred to be transferred to [facility] for further care. -Discussed with Vascular surgery Dr.Ksenia King and Medicine Dr.Timothy Holman for further management Possible Bronchitis/Sinusitis/Nasal Congestion CT head: No acute intracranial abnormality. Recently finished a course of Augmentin CTA as above Started on Doxycycline Continue Nga, Flonase (2) Facial swelling: Secondary to above (3) Personal history of breast cancer: H/O Left breast high-grade DCIS with small focus of invasive carcinoma measuring 2.2 mm ER and CO receptor negative, H ER 2NEU positive S/P bilateral mastectomies and left sentinel lymph node biopsy done on 07/20/2019 [place] lymph nodes positive for isolated tumor cells. Completed 12 cycles of paclitaxel, Herceptin and then Herceptin maintenance for 1 year completed on 11/10/2020 Completed radiation treatment May 2020 PETCT scan done on 11/05/2019 at [facility] did not show any significant recurrence of the disease Follows with [facility] Oncology as outpatient (4) Dizzy: As Above DVT Px: IV Heparin Code Status Full Code Disposition Expect to discharge him when stable Total Time Total Time Spent Total Time Spent (In Minutes): 50 minutes Discharge Plan Discharge Items Patient Disposition: Transfer Acute Care Hospital Reason For Visit: SUPERIOR VENA CAVA THROMBOSIS Discharge Diagnosis: Superior vena cava occlusion H/O Breast Cancer Possible Bronchitis/Sinusitis Activity: Per Instructions section Exercise/Sports: Wait until after follow-up appointment Non-emergency contact: Primary Care Provider and Surgeon Call non-emergency contact if: you have any medication questions, your symptoms worsen, your pain is not controlled, your pain is concerning for you and you have a fever Follow-up/Referrals: Sarwat Ruiz MD [Primary Care Provider] - Diet: Heart Healthy Addtl Attending Provider Instructions: Follow up with Vascular Surgery Dr.Ksenia King and Ramy Jackson at [facility] for further evaluation and management Follow-up with your primary care physician Dr. Sarwat Ruiz and your oncologist Dr. Harpreet Scherer upon discharge from hospital Seek immediate medical attention if your symptoms reoccur or worsen Please take all medications as instructed on discharge list below. Please call if you have any questions or problems. You can reach a [facility] hospitalist on duty at [facility] 24 hours a day by calling [phone] Pending Studies at Discharge: Yes Studies:: Hypercoagulable work-up Stand-Alone Forms: My [facility] Skilled Items Patient informed of condition?: Yes DNR: No Discharge Level of Care: Other Communicable Disease: No Discharge Prognosis: Stable Lines: Peripheral IV Urinary Catheter: No Medications and DC Order Prescriptions: New doxycycline hyclate 100 mg Capsule 100 mg PO BID@0700,1900 Qty: 0 RF: 0 Continued acetaminophen [Tylenol Extra Strength] 500 mg Tablet 1,000 mg PO Q6H PRN (Reason: Fever Or Pain) RF: 0 fluticasone propionate 50 mcg/actuation spray,suspension 2 spray INTRANASAL BID RF: 0 Nga-D 24 Hour 180-240 mg Tablet Extended Release 24 Hr 1 tab PO QAM PRN (Reason: Allergy Symptoms) RF: 0 cholecalciferol (vitamin D3) [Vitamin D3] 25 mcg (1,000 unit) Tablet 25 mcg PO QAM RF: 0 calcium carbonate-vitamin D3 [Calcium 500 + D (D3)] 500 mg(1,250mg) -125 unit Tablet 1 tab PO QAM RF: 0 melatonin 5 mg Tablet 5 mg PO HS PRN (Reason: Sleep) RF: 0 Discontinued ibuprofen [Advil Liqui-Gel] 200 mg capsule 200 mg PO Q6H PRN (Reason: Fever Or Pain) RF: 0 Discharge Orders: Discharge Order (Routine); Ordered 02/03/21 Ordered By: Aubrey Day Admission Data Admit Date/Time: 02/02/21 16:43 Attending Provider: Aubrey Day Admit Provider: Camilla Moncada Primary Care Provider: Sarwat Ruiz Other Providers: Camilla Moncada ; Tyler Ruiz
[2021-02-03 18:59] LABS: Partial Thromboplastin Time 48.2 Seconds (21.0-31.0)
[2021-02-04 05:14] LABS: Hematocrit (blood only) 37.6 % (37-47); Hemoglobin 12.6 g/dL (12.0-16.0); Mean Corpuscular Hemoglobin 30.1 pg (25-34); Mean Corpuscular Hgb Conc 33.5 g/dL (32-36); Mean Platelet Volume 8.7 fL (7.4-10.4); Platelet Count 227 K/uL (130-400); RDW Coefficient of Variation 12.8 % (11.5-14.5); RDW Standard Deviation 41.8 fL (36.4-46.3); Red Blood Count 4.18 M/uL (4.2-5.4); White Blood Count 6.02 K/uL (4.8-10.8)
[2021-02-04 05:29] LABS: BUN Creatinine Ratio 31.5 (10-20); Creatinine Clr Calc Pharmacy 109.3 ml/min; Est GFR (African American) 141.6 ml/min; Est GFR (Non-African American) 122.1 ml/min; Magnesium 2.4 mg/dl (1.8-2.4)
[2021-02-04 05:33] LABS: Partial Thromboplastin Ratio 1.8
[2021-02-04 07:50] VITALS: O2SAT 96
[2021-02-04] MEDS: CHOLECALCIFEROL 1,000 UNITS 25 MCG TAB PO SCH (08:13)
[2021-02-04] MEDS: CALCIUM 600MG + VIT D 400 IU TAB PO SCH (08:13)
[2021-02-04] MEDS: FLUTICASONE PROPIONATE NA SPR 16 GM BTL SCH (08:13)
[2021-02-04] MEDS: DOXYCYCLINE HYCLATE 100 MG CAP PO SCH (08:13)
[2021-02-04] MEDS ORDERED: POLYETHYLENE (MIRALAX) 17 GM PACK PO PRN (08:31)
[2021-02-04] MEDS ORDERED: Nursing to Pharmacy Communication SCH (08:45)
[2021-02-04] MEDS ORDERED: DOCUSATE SODIUM 100 MG CAP PO SCH (09:00)
--- NOTE | 2021-02-04 09:50 | Ultrasound Report ---
BILATERAL LOWER EXTREMITY VENOUS DOPPLER CLINICAL HISTORY: Elevated d dimer COMPARISON STUDY: Right lower extremity venous Doppler ultrasound April 30, 2018. TECHNIQUE: Sonography of the deep venous system of the bilateral lower extremities was performed. Co mpression and augmentation were evaluated. FINDINGS: The bilateral common femoral, superficial femoral and popliteal veins were compressible. A ugmentation was normal. Flow was shown within the deep calf vessels. IMPRESSION: No evidence of deep venous thrombus within the bilateral lower extremities. ACT 112: Negative or not required by law. Electronically signed by: Rohan Arredondo M.D. 02/04/2021 9:49 AM
--- NOTE | 2021-02-04 10:16 | Hospitalist Progress Note ---
Date of Service February 04, 2021 Assessment & Plan (1) Superior vena cava occlusion: Superior vena cava occlusion H/O Breast Cancer -Chest CTA:There is no evidence of pulmonary embolus in the main, lobar, or segmental pulmonary arteries. The breasts are surgically absent. There is subpleural consolidation within the anterior left upper lobe. This is nonspecific and may be related to radiation treatment. Clinical correlation will be essential. No additional foci of airspace consolidation are identified and there is no pleural effusion. Mild diffuse peribronchial thickening suggests bronchitis/reactive airway disease. Clinical correlation will be required. 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 Question intraluminal thrombus within the superior vena cava above the azygos vein. -Neck CTA:No significant stenosis, occlusion, or dissection identified within the carotid or vertebral arteries. Heterogeneous enhancement within the bilateral internal jugular veins is likely due to mixing of blood and contrast. 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 This likely accounts for multiple collaterals within the superior mediastinum with majority of the contrast reaching the heart through the azygos and hemiazygos veins. This is better appreciated on the same day chest CTA. -Hypercoagulable work-up pending -Continue IV heparin -Discussed with vascular surgery, Dr. Ruiz: Recommends no acute intervention -Discussed with oncology: Plan to transition to [facility] as able -Patient requested second opinion and so discussed with Vascular surgery Dr.Ksenia King at [facility] who reviewed the images and recommended Venogram and possible angioplasty if patient still symptomatic -Patient preferred to be transferred to [facility]: Dr.Asif Castro accepted the patient for further management Possible Bronchitis/Sinusitis/Nasal Congestion CT head: No acute intracranial abnormality. Recently finished a course of Augmentin CTA as above Continue Doxycycline Continue Nga, Flonase (2) Facial swelling: Secondary to above (3) Personal history of breast cancer: H/O Left breast high-grade DCIS with small focus of invasive carcinoma measuring 2.2 mm ER and SD receptor negative, H ER 2NEU positive S/P bilateral mastectomies and left sentinel lymph node biopsy done on 07/20/2019 [place] lymph nodes positive for isolated tumor cells. Completed 12 cycles of paclitaxel, Herceptin and then Herceptin maintenance for 1 year completed on 11/10/2020 Completed radiation treatment May 2020 PETCT scan done on 11/05/2019 at [facility] did not show any significant recurrence of the disease Follows with [place] [facility] Oncology as outpatient (4) Dizzy: As Above DVT Px: IV Heparin Code Status Full Code [facility] and Anticipated Discharge Date Admission Date: February 02, 2021 Subjective Patient is seen and examined at bedside Facial puffiness subjectively improved Reports sinus/head pressure like sensation Also reports dry cough today associated with sore throat Denies chest pain, dyspnea Has some dizziness earlier today Offers no other complaints Review of Systems Review of Systems: All systems reviewed & are unremarkable except as noted in HPI & below Physical Exam Physical Exam: Physical Exam: Vitals signs as noted above General Appearance:Moderately built and nourished, no apparent distress Head: normocephalic, Atraumatic Eyes: normal inspection, EOMI Neck: supple, Trachea midline Respiratory/Chest: Normal breath sounds, CTA, +S/P Bilateral mastectomy Cardiovascular: S1, S2, No murmur Abdomen/GI:Soft, Non tender, Bowel sounds present Extremities/Musculoskeletal:normal inspection, no edema Neurologic/Psych:AAOX3, grossly no focal neurological deficits Skin: normal color, warm Results & Data Results & Data ([facility]) Vital Signs (Past 12 Hours) Vital Signs Temp Pulse Pulse Resp BP Pulse Ox 02/04/21 08:50 74 02/04/21 07:49 36.4 C L 86 18 102/68 96 02/04/21 03:13 37.0 C 62 18 99/63 L 98 02/04/21 00:14 37.1 C 77 18 87/47 L 97 Laboratory Results Short CBC 02/04/21 Range/Units 04:59 WBC 6.02 (4.8-10.8) K/uL Hgb 12.6 (12.0-16.0) g/dL Hct 37.6 (37-47) % Plt Count 227 (130-400) K/uL BMP 02/04/21 04:59 Sodium 139 Potassium 4.0 Chloride 111 H Carbon Dioxide 25 BUN 19 H Creatinine 0.59 L Glucose 93 Calcium 8.0 L Urine 02/03/21 Range/Units 10:23 Urine Color Yellow Urine Appearance Clear (Clear) Urine pH 7.5 (4.5-7.5) Ur Specific [place] 1.006 (1.000-1.030) Urine Protein Negative (Negative) Urine Glucose (UA) Negative (Negative)
--- NOTE | 2021-02-04 10:28 | Discharge Summary ---
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 She is status post bilateral mastectomies and left sentinel lymph node biopsy done on 07/20/2019 2 out of 2 sentinel lymph nodes positive for isolated tumor cells. She completed 12 cycles of weekly paclitaxel along with Herceptin and then Herceptin maintenance for 1 year on 11/10/2020. She also completed adjuvant radiation treatment at [facility] in May 2020. She has been complaining of puffiness, redness of the face with some dizziness while bending forward and associated with shortness of breath which has been going on for more than a month. Her D-dimer was elevated at more than 600 and she was hemodynamically stable without any desaturation. 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 She denies any chest pain and or palpitation, any fever and/or chills, any nausea no vomiting or any swelling of the legs She was started with intravenous fluid, the ER physician did discuss with the vascular surgery and was advised that she does not need any acute intervention, I discussed with Dr. Scherer and after detailed discussion with the patient h erself she will will be admitted to telemetry unit for continuation of care Admission Exam Per Admitting Provider Physical Exam Physical Exam: Lying in bed comfortably but anxious Constitutional: well developed, well nourished, + ill appearing and average body habitus Eyes: PERRL, conjunctivae normal, anicteric sclerae ENMT: external ear and nose normal, oropharynx normal Neck: trachea midline, no thyromegaly Respiratory: no respiratory distress Auscultation: lungs clear to auscultation bilaterally Cardiovascular: Rate/Rhythm: regular rate and regular rhythm Heart Sounds: no murmur Extremities: no edema Chest (Breasts): Additional Comments: Bilateral mastectomies. Thickening of skin fold about the mastectomy site. Right a port in situ. Left upper chest skin discoloration. Gastrointestinal (Abdomen): Inspection/Auscultation: abdomen not distended Percussion/Palpation: abdomen soft; abdomen nontender Musculoskeletal: No acute arthritis in any joint Neurologic: Alert, awake and oriented x3. Psychiatric: A+Ox3, euthymic affect Lymphatic: no cervical or axillary lymphadenopathy Principal Diagnosis Superior vena cava occlusion H/O Breast Cancer Possible Bronchitis/Sinusitis Discharge Data Allergies Allergy/AdvReac Type Severity Reaction Status Date / Time lidocaine Allergy Severe HIVES Verified 02/02/21 15:50 cat dander Allergy Mild respiratory Verified 02/02/21 15:50 mold Allergy Mild respiratory Verified 02/02/21 15:50 Sulfa (Sulfonamide Allergy Mild unknown Verified 02/02/21 15:50 Antibiotics) Consultations 02/02/21 15:26 ED Decision to Admit Stat 02/02/21 17:37 Consult Vascular Surgery Routine 02/03/21 18:32 Burn CD for patient Routine 02/03/21 21:58 Consult Patient Rep / Service Excellence [Consult Patient Services] Routine Procedures Performed -Chest CTA:There is no evidence of pulmonary embolus in the main, lobar, or segmental pulmonary arteries. The breasts are surgically absent. There is subpleural consolidation within the anterior left upper lobe. This is nonspecific and may be related to radiation treatment. Clinical correlation will be essential. No additional foci of airspace consolidation are identified and there is no pleural effusion. Mild diffuse peribronchial thickening suggests bronchitis/reactive airway disease. Clinical correlation will be required. 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 Question intraluminal thrombus within the superior vena cava above the azygos vein. -Neck CTA:No significant stenosis, occlusion, or dissection identified within the carotid or vertebral arteries. Heterogeneous enhancement within the bilateral internal jugular veins is likely due to mixing of blood and contrast. 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 This likely accounts for multiple collaterals within the superior mediastinum with majority of the contrast reaching the heart through the azygos and hemiazygos veins. This is better appreciated on the same day chest CTA. Ordered Studies 02/03/21 13:52 CT head/brain wo con Urgent 02/03/21 19:32 US venous doppler LE Routine Hospital Course (1) Superior vena cava occlusion: Superior vena cava occlusion H/O Breast Cancer -Chest CTA:There is no evidence of pulmonary embolus in the main, lobar, or segmental pulmonary arteries. The breasts are surgically absent. There is subpleural consolidation within the anterior left upper lobe. This is nonspecific and may be related to radiation treatment. Clinical correlation will be essential. No additional foci of airspace consolidation are identified and there is no pleural effusion. Mild diffuse peribronchial thickening suggests bronchitis/reactive airway disease. Clinical correlation will be required. 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 Question intraluminal thrombus within the superior vena cava above the azygos vein. -Neck CTA:No significant stenosis, occlusion, or dissection identified within the carotid or vertebral arteries. Heterogeneous enhancement within the bilateral internal jugular veins is likely due to mixing of blood and contrast. 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 This likely accounts for multiple collaterals within the superior mediastinum with majority of the contrast reaching the heart through the azygos and hemiazygos veins. This is better appreciated on the same day chest CTA. -Hypercoagulable work-up pending -Continue IV heparin -Discussed with vascular surgery, Dr. Ruiz: Recommends no acute intervention -Discussed with oncology: Plan to transition to [facility] as able -Patient requested second opinion and so discussed with Vascular surgery Dr.Ksenia King at [facility] who reviewed the images and recommended Venogram and possible angioplasty if patient still symptomatic -Patient preferred to be transferred to [facility]: Dr.Asif Castro accepted the patient for further management Possible Bronchitis/Sinusitis/Nasal Congestion CT head: No acute intracranial abnormality. Recently finished a course of Augmentin CTA as above Continue Doxycycline Continue Nga, Flonase (2) Facial swelling: Secondary to above (3) Personal history of breast cancer: H/O Left breast high-grade DCIS with small focus of invasive carcinoma measuring 2.2 mm ER and UT receptor negative, H ER 2NEU positive S/P bilateral mastectomies and left sentinel lymph node biopsy done on 07/20/2019 [place] lymph nodes positive for isolated tumor cells. Completed 12 cycles of paclitaxel, Herceptin and then Herceptin maintenance for 1 year completed on 11/10/2020 Completed radiation treatment May 2020 PETCT scan done on 11/05/2019 at [facility] did not show any significant recurrence of the disease Follows with [facility] On[facility] as outpatient (4) Dizzy: As Above DVT Px: IV Heparin Code Status Full Code Disposition [facility] Total Time Total Time Spent Total Time Spent (In Minutes): 45 minutes Discharge Plan Discharge Items Patient Disposition: Transfer Acute Care Hospital Reason For Visit: SUPERIOR VENA CAVA THROMBOSIS Discharge Diagnosis: Superior vena cava occlusion H/O Breast Cancer Possible Bronchitis/Sinusitis Activity: Per Instructions section Exercise/Sports: Wait until after follow-up appointment Non-emergency contact: Primary Care Provider and Surgeon Call non-emergency contact if: you have any medication questions, your symptoms worsen, your pain is not controlled, your pain is concerning for you and you have a fever Follow-up/Referrals: Sarwat Ruiz MD [Primary Care Provider] - Diet: Heart Healthy Addtl Attending Provider Instructions: Follow up with Vascular Surgery Dr.Ksenia King and Dr.Asif Castro at [facility] for further evaluation and management Follow-up with your primary care physician Dr. Sarwat Ruiz and your oncologist Dr. Harpreet Scherer upon discharge from hospital Seek immediate medical attention if your symptoms reoccur or worsen Please take all medications as instructed on discharge list below. Please call if you have any questions or problems. You can reach a [facility] hospitalist on duty at [facility] 24 hours a day by calling [phone] Pending Studies at Discharge: Yes Studies:: Hypercoagulable work-up Stand-Alone Forms: My [facility] Skilled Items Patient informed of condition?: Yes DNR: No Discharge Level of Care: Other Communicable Disease: No Discharge Prognosis: Stable Lines: Peripheral IV Urinary Catheter: No Medications and DC Order Prescriptions: New doxycycline hyclate 100 mg Capsule 100 mg PO BID@0700,1900 Qty: 0 RF: 0 docusate sodium 100 mg Capsule 100 mg PO BID PRN (Reason: Constipation) Qty: 0 RF: 0 Continued acetaminophen [Tylenol Extra Strength] 500 mg Tablet 1,000 mg PO Q6H PRN (Reason: Fever Or Pain) RF: 0 fluticasone propionate 50 mcg/actuation spray,suspension 2 spray INTRANASAL BID RF: 0 Nga-D 24 Hour 180-240 mg Tablet Extended Release 24 Hr 1 tab PO QAM PRN (Reason: Allergy Symptoms) RF: 0 cholecalciferol (vitamin D3) [Vitamin D3] 25 mcg (1,000 unit) Tablet 25 mcg PO QAM RF: 0 calcium carbonate-vitamin D3 [Calcium 500 + D (D3)] 500 mg(1,250mg) -125 unit Tablet 1 tab PO QAM RF: 0 melatonin 5 mg Tablet 5 mg PO HS PRN (Reason: Sleep) RF: 0 Discontinued ibuprofen [Advil Liqui-Gel] 200 mg capsule 200 mg PO Q6H PRN (Reason: Fever Or Pain) RF: 0 Discharge Orders: Discharge Order (Routine); Ordered 02/04/21 Ordered By: Aubrey Day Admission Data Admit Date/Time: 02/02/21 16:43 Attending Provider: Aubrey Day Admit Provider: Camilla Moncada Primary Care Provider: Sarwat Ruiz Other Providers: Camilla Moncada ; Tyler Ruiz
[2021-02-04 11:39] VITALS: BP 100/64; PULSE 81; TEMP 98.6
[2021-02-04] MEDS ORDERED: LACTOBACILLUS ACIDOPHILUS 1 GM PACK PO SCH (12:00)
[2021-02-04] MEDS ORDERED: ADVANCED PROBIOTIC 1250 MG CAPSULE PO SCH (12:00)
[2021-02-08 07:47] LABS: Anti Cardiolipin Ab IgG <14 GPL; Anti Cardiolipin Ab IgM <12 MPL; Anti-Cardiolipin Ab IgA <11 APL; Anti-Thrombin III Activity 91 % normal (80-135); B2 Glycoprotein IgA <2.0 U/mL (<20.0); B2 Glycoprotein IgG 3.5 U/mL (<20.0); B2 Glycoprotein IgM 15.6 U/mL (<20.0); PTT LA Screen 137 sec (<=40); Protein S Functional(Activity) 57 % (60-140)
[2021-02-08 12:21] LABS: Lupus Hex Phase (Rflxdonotord) Negative (Negative)
--- NOTE | 2021-02-14 13:33 | Coding Query ---
To promote full compliance with coding requirements relating to patient care, provider participation is requested in all cases of glass lathe operator uncertainty. Please assist us with the question(s) below: Coding Question(s): The diagnosis(es) below was documented in the H&P, then subsequently fell off all further documentation. Please indicate if it is still a possible diagnosis or ruled out. Physician's Response(s): POSSIBLE HYPERCOAGULABLE STATE DUE TO HISTORY OF BREAST CANCER ( X ) Diagnosed and POA ( ) Diagnosed and not POA ( ) Ruled out ( ) Other (please specify) CLOT FORMATION COULD BE SECONDARY TO A PORT ( ) Diagnosed and POA ( ) Diagnosed and not POA ( ) Ruled out ( X ) Other (please specify) Unsure MTDD
== END 2021-02-04 13:13 | disposition short-term general hospital (02) | DRG 300 ==
LOC: ED 14:10 → 2S 16:43 → SUATTDRO 16:43 → 2S 18:34